=== PATIENT | male | born 1940 ===

== ENCOUNTER 2018-06-16 08:30 | Outpatient (CLI) | payer MEDICARE ==
--- NOTE | 2018-06-16 10:55 | CT ---
PRE AND POST CONTRAST ENHANCED CT IMAGES ABDOMEN AND PELVIS: History: Hematuria. R31.0 FINDINGS: There is extensive coronary artery calcifications. Atherosclerotic calcifications seen in the abdomin al aorta. There is an infrarenal abdominal aortic aneurysm with maximum axial diameter measuring 2.9 x 3.4 cm. Superior inferior length is 5.9 cm. Numerous 2-3 mm bilateral renal calculi seen. No evidence of hydroureteronephrosis seen. The ureters are decompressed and overall opacified. No definite evidence of bladder masses or lesions seen. The liver and spleen are unremarkable. The gallbladder and pancreas are unremarkable. Adrenal glands unremarkable. IMPRESSION: 1. Renal calculi without evidence of obstruction. 2. Abdominal aortic aneurysm. POS: [facility]
== END 2018-06-16 08:31 | disposition home or self-care (01) ==
LOC: SCSCT 08:30
PROVIDERS: ATTEND Urology
DX: R31.0 Gross hematuria (principal); I71.4 Abdominal aortic aneurysm, without rupture; N20.0 Calculus of kidney
CPT/HCPCS: 74178; 82565